=== PATIENT | female | born 1990 | race American Indian/Alaskan Native ===

== ENCOUNTER 2018-03-03 18:40 | Emergency (ER) | payer OTHER ==
[2018-03-03] MEDS ORDERED: MOTRIN PO ONE (18:52)
[2018-03-03] MEDS ORDERED: NORCO 7.5/325 PO ONE (22:31)
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
[2018-03-04 01:38] VITALS: BP 138/80
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
== END 2018-03-04 01:43 | disposition home or self-care (01) ==
LOC: ED 18:40
DX: M62.838 Other muscle spasm (principal); R51 Headache; F17.200 Nicotine dependence, unspecified, uncomplicated; Z90.89 Acquired absence of other organs
CPT/HCPCS: 70450; 72125